=== PATIENT | female | born 1960 | race African-American/Black ===

== ENCOUNTER 2017-06-15 09:39 | Emergency (ER) | payer OTHER ==
[~2017-06-15] VITALS: Ht 167.6 cm; Wt 76.0 kg
[2017-06-15 14:13] VITALS: BP 129/77
== END 2017-06-15 14:14 | disposition home or self-care (01) ==
LOC: ER 09:59
DX: Z13.89 Encounter for screening for other disorder (principal); Z90.49 Acquired absence of other specified parts of digestive tract
CPT/HCPCS: 99281